=== PATIENT | female | born 1930 | race Asian ===

== ENCOUNTER 2016-10-09 19:41 | Emergency (ER) | payer MEDICARE, OTHER ==
[~2016-10-09] VITALS: Ht 149.9 cm; Wt 50.0 kg
[~2016-10-09 19:41] MED LIST: MECLIZINE PO; MULT-860 PO; PRESERVISION PO; [UNRECOGNIZED DRUG - OTHER] PO
[2016-10-09 19:44] VITALS: Ht 149.9 cm; Wt 50.0 kg
[2016-10-10 03:44] LABS: UR BILIRUBIN (Dip) NEGATIVE (NEGATIVE); UR BLOOD (Dip) 2+ mg/dL (NEGATIVE); UR CLARITY CLEAR (CLEAR); UR COLOR STRAW (YELLOW); UR GLUCOSE (Dip) NEGATIVE (NEGATIVE); UR KETONES (Dip) NEGATIVE (NEGATIVE); UR NITRITE (Dip) NEGATIVE (NEGATIVE); UR SPECIFIC GRAVITY (Dip) 1.006 (1.003-1.030); UR TOTAL PROTEIN (Dip) NEGATIVE (NEGATIVE); UR UROBILINOGEN (Dip) NEGATIVE (NEGATIVE)
[2016-10-10 03:45] LABS: ADD UMIC YES; UR BACTERIA FEW /HPF (NONE SEEN); UR LEUKOCYTE ESTERASE (Dip) 2+ Leu/ul (NEGATIVE); UR RBC 7 /HPF (0-5)
--- NOTE | 2016-10-19 18:13 | ERD ---
ER Documentation Chief Complaint Date/Time DATE: 10/19/16 TIME: 18:11 Chief Complaint painful/burning urination this pm, denies fever/chills HPI 86-year-old female presents emergency room with painful urination that started tonight a few hours ago. She describes urgency and frequency as well as burning. She has not had any flank pain, hematuria, fevers or chills. She denies nausea or vomiting. Denies systemic complaints. She is not currently on any antibiotics. ROS All systems reviewed and are negative except as per history of present illness. Medications Home Meds Reported Medications Mu-Vits-Min Th/Lycopene/Lutein (CENTRUM SILVER TABLET) 1 Each Tablet, 1 EACH PO DAILY 03/10/13 [Ibubrofen] No Conflict Check, PO DAILY Y 03/10/13 [Preservision] No Conflict Check, PO BID 03/10/13 [Meclizine] No Conflict Check, PO DAILY Y 03/10/13 Allergies Allergies: Coded Allergies: No Known Allergy (Verified , 10/09/16) PMhx/Soc History of Surgery: Yes (CHOLECYSECTOMY; HYSTERECTOMY; CBD STONE REMOVAL) Anesthesia Reaction: No Hx Neurological Disorder: Yes Hx Respiratory Disorders: No Hx Cardiac Disorders: Yes (HTN) Hx Psychiatric Problems: No Hx Miscellaneous Medical Probl: No Hx Alcohol Use: No Hx Substance Use: No Hx Tobacco Use: No Physical Exam Vitals See nursing notes Physical Exam General: Elderly female, pleasant, no distress HEENT: Head is normocephalic, atraumatic. Neck: Supple. Nontender. Lungs: Clear to auscultation. Normal air movement. Heart: Regular rate and rhythm. S1 and S2 are normal. No murmurs, gallops, or rubs. Abdomen: Soft, nontender, nondistended. Bowel sounds are normoactive. No CVA tenderness Extremities: No clubbing or cyanosis. Normal pulses. Moving extremities x 4. No weakness. Neurologic: Alert and oriented 3. No focal deficits. Skin: Normal turgor. No rash or lesions. Results 24 hrs Laboratory Tests Test 10/09/16 23:00 10/10/16 07:46 Urine Color STRAW Urine Clarity CLEAR Urine pH 6.0 Urine Specific [place] 1.006 Urine Ketones NEGATIVEmg/dL Urine Nitrite NEGATIVEmg/dL Urine Bilirubin NEGATIVEmg/dL Urine Urobilinogen NEGATIVEmg/dL Urine Leukocyte Esterase 2+Anton/ul Urine Microscopic RBC 7/HPF Urine Microscopic WBC 14/HPF Urine Bacteria FEW/HPF Urine Hemoglobin 2+mg/dL Urine Glucose NEGATIVEmg/dL Urine Total Protein NEGATIVEmg/dl Lab Scanned Report [id number] Procedures/MDM ED course: Urine shows positive infection, with 2+ leukocyte esterase. MDM: 86-year-old female presents with a urinary tract infection, patient likely presents with cystitis. There are no systemic complaints, no flank pain, no signs of sepsis or toxic appearance. Vitals are stable, and stable for outpatient management with p.o. antibiotics. Patient's blood pressure was elevated (>120/80) but appears stable without evidence of hypertension emergency or urgency. The patient was counseled about the risks of hypertension and urged to pursue outpatient monitoring and therapy within a week with their primary care physician. Departure Diagnosis: Primary Impression: UTI (urinary tract infection) Condition: Good RAQUEL PACHECO PA-C Oct 19, 2016 18:13
== END 2016-10-10 01:51 | disposition home or self-care (01) ==
LOC: FTE 19:41
DX: N39.0 Urinary tract infection, site not specified (principal); I10 Essential (primary) hypertension
CPT/HCPCS: 81001

== ENCOUNTER 2018-02-20 02:44 | Observation (INO) | END 2018-02-21 11:40 | disposition home or self-care (01) ==